=== PATIENT | male | born 1955 | race Caucasian/White ===

== ENCOUNTER 2019-04-04 19:11 | Emergency (ER) | payer MEDICARE ==
[~2019-04-04] VITALS: Ht 172.7 cm; Wt 74.8 kg
[~2019-04-04 19:11] MED LIST: ASPI325 PO; LISI20 PO; LOVA40 PO; Lovastatin20 MG PO; METR500 PO; VARE1 PO
[2019-04-04] MEDS ORDERED: Lovastatin20 MG PO (19:31)
[2019-04-04] MEDS ORDERED: CEPH500 PO (22:14)
== END 2019-04-04 22:24 | disposition home or self-care (01) ==
LOC: ER 19:11
DX: S61.216A Laceration without foreign body of right little finger without damage to nail, initial encounter (principal); I10 Essential (primary) hypertension; F17.210 Nicotine dependence, cigarettes, uncomplicated; Z23 Encounter for immunization; Z79.899 Other long term (current) drug therapy; Z79.82 Long term (current) use of aspirin; W26.8XXA Contact with other sharp object(s), not elsewhere classified, initial encounter
CPT/HCPCS: 12001; 73140; 90471; 90714; 99283-25; A9270-GY

== ENCOUNTER → 2020-06-10 | Outpatient (CLI) | payer MEDICARE ==
[~2020-06-10] MED LIST changes: +CEPH500 PO; +Ferrous Sulfat324 MG; +TAMS.4ER
[2020-06-10 15:22] LABS: BASOPHILS ABSOLUTE AUTO 0.04 K/mm3 (0.00-0.23); BASOPHILS PERCENT AUTO 1 % (0-2); EOSINOPHILS ABSOLUTE AUTO 0.16 K/mm3 (0.00-0.68); EOSINOPHILS PERCENT AUTO 4 % (0-6); Hematocrit 25.2 % (37.0-53.0); Hemoglobin 6.4 g/dL (13.5-17.5); IMMATURE GRAN ABSOLUTE AUTO 0.01 K/mm3 (0.00-0.10); IMMATURE GRAN PERCENT AUTO 0 % (0-1); LYMPHOCYTES ABSOLUTE AUTO 1.07 K/mm3 (0.84-5.20); LYMPHOCYTES PERCENT AUTO 27 % (21-46); MONOCYTES ABSOLUTE AUTO 0.48 K/mm3 (0.16-1.47); MONOCYTES PERCENT AUTO 12 % (4-13); Mean Corpuscular HGB 15.9 pg (26.0-34.0); Mean Corpuscular HGB Conc 25.4 g/dL (31.5-36.5); Mean Corpuscular Volume 63 fL (80-100); Mean Platelet Volume 10.2 fL (9.1-12.4); NEUTROPHILS ABSOLUTE AUTO 2.19 K/mm3 (1.96-9.15); NEUTROPHILS PERCENT AUTO 55 % (41-73); Platelet Count 390 K/mm3 (150-400); RDW Coefficient Variation 22.5 % (11.7-14.2); RDW Standard Deviation 48.8 fL (35.1-46.3); Red Blood Cell Count 4.03 M/mm3 (4.30-5.90); White Blood Cell Count 3.95 K/mm3 (4.00-11.30)
[2020-06-10 15:44] LABS: Alanine Aminotransfer (ALT/SGP 16 U/L (12-78); Albumin, Blood 3.7 g/dL (3.4-5.0); Albumin/Globulin Ratio 1.1 (0.8-1.8); Alk Phos 64 U/L (50-136); Anion Gap 7 mmol/L (6-16); Aspartate Aminotrans (AST/SGOT 11 U/L (12-37); Bilirubin, Total 0.3 mg/dL (0.1-1.0); Blood Urea Nitrogen 19 mg/dL (8-24); Bun/Creatinine Ratio 18.8 (12.0-20.0); CO2, Blood 24 mmol/L (21-32); Calcium, Blood 8.7 mg/dL (8.5-10.1); Chloride, Blood 107 mmol/L (98-108); Cholesterol 167 mg/dL (50-200); Creatinine, Blood 1.01 mg/dL (0.60-1.20); Globulin, Blood 3.4 g/dL (2.2-4.0); Glomerular Filtration Rate >60 (60-); Glucose, Blood 94 mg/dL (70-99); HDL Cholesterol 83 mg/dL (>39); LDL/HDL RATIO 0.9; Low Density Lipoprotein Chol 72 mg/dL (0-110); Potassium, Blood 4.5 mmol/L (3.5-5.5); Sodium, Blood 138 mmol/L (136-145); Total Protein, Blood 7.1 g/dL (6.4-8.2); Triglycerides 61 mg/dL (30-160); Very Low Density Lipoprot Chol 12 mg/dL (6-32)
== END | disposition home or self-care (01) ==
LOC: LAB SHORT 13:26 → PLD 13:26
PROVIDERS: Family Medicine
DX: Z12.5 Encounter for screening for malignant neoplasm of prostate (principal); E78.2 Mixed hyperlipidemia; I11.0 Hypertensive heart disease with heart failure; I50.9 Heart failure, unspecified
CPT/HCPCS: 80053; 80061; 83880; 85025; G0103

== ENCOUNTER 2020-06-25 09:46 | Day surgery (SDC) | payer MEDICARE ==
[~2020-06-25] VITALS: Ht 172.7 cm; Wt 76.1 kg
[~2020-06-25 09:46] MED LIST changes: -Ferrous Sulfat324 MG; -TAMS.4ER
[2020-06-25] MEDS ORDERED: TAMS.4ER (10:31)
[2020-06-25] MEDS ORDERED: Ferrous Sulfat324 MG (10:31)
== END 2020-06-25 13:25 | disposition home or self-care (01) ==
LOC: ORSCSDS 09:46
PROVIDERS: Internal Medicine Gastroenterology
PROC: 0DB78ZX Excision of Stomach, Pylorus, Via Natural or Artificial Opening Endoscopic, Diagnostic (ICD-10-PCS; principal; 2020-06-25 11:15)
PROC: 0D5H8ZZ Destruction of Cecum, Via Natural or Artificial Opening Endoscopic (ICD-10-PCS; principal; 2020-06-25 11:15)
PROC: 0DB98ZX Excision of Duodenum, Via Natural or Artificial Opening Endoscopic, Diagnostic (ICD-10-PCS; principal; 2020-06-25 11:15)
DX: D50.9 Iron deficiency anemia, unspecified (principal); Z80.0 Family history of malignant neoplasm of digestive organs; K55.20 Angiodysplasia of colon without hemorrhage; K57.30 Diverticulosis of large intestine without perforation or abscess without bleeding; K64.8 Other hemorrhoids; Z86.010 Personal history of colon polyps; F17.210 Nicotine dependence, cigarettes, uncomplicated; I10 Essential (primary) hypertension; Z79.899 Other long term (current) drug therapy
CPT/HCPCS: 88305; 88342; J2250; J2704; J7120

== ENCOUNTER → 2022-04-20 | Outpatient (CLI) | payer MEDICARE ==
[~2022-04-20] MED LIST changes: +Ferrous Sulfat324 MG; +TAMS.4ER
[2022-04-20 13:15] LABS: BASOPHILS ABSOLUTE AUTO 0.03 K/mm3 (0.00-0.23); BASOPHILS PERCENT AUTO 1 % (0-2); EOSINOPHILS ABSOLUTE AUTO 0.13 K/mm3 (0.00-0.68); EOSINOPHILS PERCENT AUTO 2 % (0-6); Hematocrit 41.2 % (37.0-53.0); Hemoglobin 14.6 g/dL (13.5-17.5); IMMATURE GRAN ABSOLUTE AUTO 0.02 K/mm3 (0.00-0.10); IMMATURE GRAN PERCENT AUTO 0 % (0-1); LYMPHOCYTES ABSOLUTE AUTO 1.35 K/mm3 (0.84-5.20); LYMPHOCYTES PERCENT AUTO 22 % (21-46); MONOCYTES ABSOLUTE AUTO 0.67 K/mm3 (0.16-1.47); MONOCYTES PERCENT AUTO 11 % (4-13); Mean Corpuscular HGB 31.8 pg (26.0-34.0); Mean Corpuscular HGB Conc 35.4 g/dL (31.5-36.5); Mean Corpuscular Volume 90 fL (80-100); Mean Platelet Volume 10.9 fL (9.1-12.4); NEUTROPHILS ABSOLUTE AUTO 3.88 K/mm3 (1.96-9.15); NEUTROPHILS PERCENT AUTO 64 % (41-73); Platelet Count 281 K/mm3 (150-400); RDW Coefficient Variation 12.6 % (11.7-14.2); RDW Standard Deviation 41.4 fL (35.1-46.3); Red Blood Cell Count 4.59 M/mm3 (4.30-5.90); White Blood Cell Count 6.08 K/mm3 (4.00-11.30)
[2022-04-20 13:33] LABS: Albumin, Blood 3.8 g/dL (3.4-5.0); Albumin/Globulin Ratio 1.2 (0.8-1.8); Bilirubin, Total 0.5 mg/dL (0.1-1.0); Bun/Creatinine Ratio 15.2 (12.0-20.0); Calcium, Blood 8.8 mg/dL (8.5-10.1); Creatinine, Blood 0.99 mg/dL (0.60-1.20); Globulin, Blood 3.3 g/dL (2.2-4.0); Potassium, Blood 4.3 mmol/L (3.5-5.5); Total Protein, Blood 7.1 g/dL (6.4-8.2)
== END | disposition home or self-care (01) ==
LOC: LAB SHORT 13:07
PROVIDERS: Physician Assistant Medical
DX: R07.9 Chest pain, unspecified (principal)
CPT/HCPCS: 80053; 84484; 85025; 85379

== ENCOUNTER 2022-05-18 13:43 | Inpatient (IN) | payer MEDICARE ==
[~2022-05-18] VITALS: Ht 170.2 cm; Wt 84.3 kg
[2022-05-18 14:39] LABS: BASOPHILS ABSOLUTE AUTO 0.02 K/mm3 (0.00-0.23); BASOPHILS PERCENT AUTO 0 % (0-2); EOSINOPHILS PERCENT AUTO 3 % (0-6); Hematocrit 22.7 % (37.0-53.0); Hemoglobin 7.6 g/dL (13.5-17.5); IMMATURE GRAN ABSOLUTE AUTO 0.03 K/mm3 (0.00-0.10); IMMATURE GRAN PERCENT AUTO 1 % (0-1); LYMPHOCYTES ABSOLUTE AUTO 1.15 K/mm3 (0.84-5.20); LYMPHOCYTES PERCENT AUTO 19 % (21-46); MONOCYTES ABSOLUTE AUTO 0.49 K/mm3 (0.16-1.47); MONOCYTES PERCENT AUTO 8 % (4-13); Mean Corpuscular HGB 31.8 pg (26.0-34.0); Mean Corpuscular HGB Conc 33.5 g/dL (31.5-36.5); Mean Corpuscular Volume 95 fL (80-100); Mean Platelet Volume 10.5 fL (9.1-12.4); NEUTROPHILS ABSOLUTE AUTO 4.18 K/mm3 (1.96-9.15); NEUTROPHILS PERCENT AUTO 69 % (41-73); Platelet Count 395 K/mm3 (150-400); RDW Coefficient Variation 13.6 % (11.7-14.2); RDW Standard Deviation 46.5 fL (35.1-46.3); Red Blood Cell Count 2.39 M/mm3 (4.30-5.90); White Blood Cell Count 6.07 K/mm3 (4.00-11.30)
[2022-05-18 14:50] LABS: Albumin, Blood 2.9 g/dL (3.4-5.0); Bilirubin, Total 0.2 mg/dL (0.1-1.0); Bun/Creatinine Ratio 14.9 (12.0-20.0); Calcium, Blood 7.8 mg/dL (8.5-10.1); Creatinine, Blood 1.21 mg/dL (0.60-1.20); Globulin, Blood 2.9 g/dL (2.2-4.0); Potassium, Blood 4.3 mmol/L (3.5-5.5); Total Protein, Blood 5.8 g/dL (6.4-8.2)
[2022-05-18] MEDS ORDERED: ASPI325EC PO (17:31)
[2022-05-18] MEDS ORDERED: PANTOPRAZOLE SO40 M2 PO (17:32)
--- NOTE | 2022-05-18 18:38 | NUR ---
PT ARRIVED ON FLOOR AT 1830. RECEIVED REPORT FROM ER NURSE PRIOR. PT STABLE. VITALS/WEIGHT TAKEN. QUICK ADMIT PERFORMED.
[2022-05-18] MEDS ORDERED: RESTORIL15 M1 PO (19:24)
[2022-05-18 20:08] LABS: Hematocrit 22.9 % (37.0-53.0); Hemoglobin 7.7 g/dL (13.5-17.5)
[2022-05-18 20:30] LABS: Percent Saturation 13.6 % (20.0-50.0)
--- NOTE | 2022-05-19 06:32 | NUR ---
Shift Summary Pt NPO except water since 0000 pending endoscopy today. Provider called me and requested pt become Strict NPO at 1300 today. Placed sign with this information outside his room, will pass to day shift RN. Pt received 30 mg Temazepam before bed which is a new prescription for him, this is the 2nd night he has taken it. Pt heavily asleep t/o the night. Pt states he had black tarry stool earlier today. On telemetry running sinus rhythm in the 70 s. VSS, pleasant and cooperative.
[2022-05-19 09:34] LABS: BASOPHILS ABSOLUTE AUTO 0.02 K/mm3 (0.00-0.23); BASOPHILS PERCENT AUTO 0 % (0-2); EOSINOPHILS PERCENT AUTO 4 % (0-6); Hematocrit 20.9 % (37.0-53.0); IMMATURE GRAN ABSOLUTE AUTO 0.03 K/mm3 (0.00-0.10); IMMATURE GRAN PERCENT AUTO 1 % (0-1); LYMPHOCYTES ABSOLUTE AUTO 1.17 K/mm3 (0.84-5.20); LYMPHOCYTES PERCENT AUTO 25 % (21-46); MONOCYTES ABSOLUTE AUTO 0.45 K/mm3 (0.16-1.47); MONOCYTES PERCENT AUTO 10 % (4-13); Mean Corpuscular HGB 31.4 pg (26.0-34.0); Mean Corpuscular HGB Conc 33.5 g/dL (31.5-36.5); Mean Corpuscular Volume 94 fL (80-100); Mean Platelet Volume 10.5 fL (9.1-12.4); NEUTROPHILS ABSOLUTE AUTO 2.81 K/mm3 (1.96-9.15); NEUTROPHILS PERCENT AUTO 60 % (41-73); Platelet Count 365 K/mm3 (150-400); RDW Coefficient Variation 13.6 % (11.7-14.2); RDW Standard Deviation 46.5 fL (35.1-46.3); Red Blood Cell Count 2.23 M/mm3 (4.30-5.90); White Blood Cell Count 4.68 K/mm3 (4.00-11.30)
--- NOTE | 2022-05-19 16:36 | NUR ---
THE PATIENT WAS BROUGHT TO DAY SURGERY FOR HIS PROCEDURE.
--- NOTE | 2022-05-19 16:41 | NUR ---
05/19/22 1641 Nam [place]. SEE ANETHESIA RECORD
--- NOTE | 2022-05-19 17:18 | NUR ---
PATIENT ARRRIVED BACK FROM EGD, REPORT RECEIVED FROM MARY DHALIWAL. VSS ON ARRIVAL. PATIENT DENIES ANY PAIN OR NEEDS. FALL PRECAUTIONS IN PLACE, BED ALARM SET. CALL LIGHT WITHIN REACH.
--- NOTE | 2022-05-19 18:09 | NUR ---
SHIFT SUMMARY- PT HAD MEDIUM FORMED BROWN BM TODAY-NO BLOOD. PT HAD EGD TODAY. PT STABLE. RECEIVED 1 UNIT OF PRBCS.
[2022-05-20 05:45] LABS: BASOPHILS ABSOLUTE AUTO 0.04 K/mm3 (0.00-0.23); BASOPHILS PERCENT AUTO 1 % (0-2); EOSINOPHILS ABSOLUTE AUTO 0.23 K/mm3 (0.00-0.68); EOSINOPHILS PERCENT AUTO 4 % (0-6); Hematocrit 23.8 % (37.0-53.0); IMMATURE GRAN ABSOLUTE AUTO 0.01 K/mm3 (0.00-0.10); IMMATURE GRAN PERCENT AUTO 0 % (0-1); LYMPHOCYTES ABSOLUTE AUTO 1.27 K/mm3 (0.84-5.20); LYMPHOCYTES PERCENT AUTO 21 % (21-46); MONOCYTES ABSOLUTE AUTO 0.54 K/mm3 (0.16-1.47); MONOCYTES PERCENT AUTO 9 % (4-13); Mean Corpuscular HGB 30.7 pg (26.0-34.0); Mean Corpuscular HGB Conc 33.6 g/dL (31.5-36.5); Mean Corpuscular Volume 91 fL (80-100); Mean Platelet Volume 10.3 fL (9.1-12.4); NEUTROPHILS ABSOLUTE AUTO 3.94 K/mm3 (1.96-9.15); NEUTROPHILS PERCENT AUTO 65 % (41-73); Platelet Count 368 K/mm3 (150-400); RDW Coefficient Variation 14.3 % (11.7-14.2); RDW Standard Deviation 47.2 fL (35.1-46.3); Red Blood Cell Count 2.61 M/mm3 (4.30-5.90); White Blood Cell Count 6.03 K/mm3 (4.00-11.30)
--- NOTE | 2022-05-20 06:19 | NUR ---
EMERGENCY MEDICINE SPECIALIST SUMMARY PT A/XO4. NO ACUTE EVENTS. PLEASANT AND COOPERATIVE. PT HAD EGD DURING THE DAY. CONT W/POST OP VITALS T/O THE NIGHT. VSS. PT REQ HALF DOSE OF TEMAZEPAM-- ADMIN 15MG. PT ABLE TO MAKE NEEDS KNOWN. INDEPENDENT IN THE ROOM. CALL LIGHT ACCESSIBLE. WILL CONT TO MONITOR.
--- NOTE | 2022-05-20 12:56 | NUR ---
DC NOTE-PT LEFT DOWN IN WC WITH MAYRA MORALES IN STABLE CONDITION. PT LEFT WITH ALL BELONGINGS. ALL PAPERWORK SIGNED AND QUESTIONS ANSERED. MEDS FAXED TO [facility].
[2022-05-20 17:12] LABS: Potassium, Blood 3.7 mmol/L (3.5-5.5)
[2022-05-20 17:13] LABS: Bun/Creatinine Ratio 16.5 (12.0-20.0); Calcium, Blood 8.2 mg/dL (8.5-10.1); Creatinine, Blood 0.97 mg/dL (0.60-1.20)
== END 2022-05-20 12:44 | disposition home or self-care (01) | DRG 811 ==
LOC: ER 13:43 → MEDS 17:41
PROVIDERS: Internal Medicine; Internal Medicine Gastroenterology; Physician Assistant; ADMIT Internal Medicine
PROC: 30233N1 Transfusion of Nonautologous Red Blood Cells into Peripheral Vein, Percutaneous Approach (ICD-10-PCS; 2022-05-18)
PROC: 0W3P8ZZ Control Bleeding in Gastrointestinal Tract, Via Natural or Artificial Opening Endoscopic (ICD-10-PCS; principal; 2022-05-19 15:00)
DX: D62 Acute posthemorrhagic anemia (principal); K25.4 Chronic or unspecified gastric ulcer with hemorrhage; K26.4 Chronic or unspecified duodenal ulcer with hemorrhage; K31.811 Angiodysplasia of stomach and duodenum with bleeding; I10 Essential (primary) hypertension; E78.5 Hyperlipidemia, unspecified; F12.10 Cannabis abuse, uncomplicated; K64.8 Other hemorrhoids; K22.2 Esophageal obstruction; Z79.899 Other long term (current) drug therapy; Z79.811 Long term (current) use of aromatase inhibitors; Z98.890 Other specified postprocedural states; Z87.19 Personal history of other diseases of the digestive system; Z90.49 Acquired absence of other specified parts of digestive tract; Z87.891 Personal history of nicotine dependence; Z86.79 Personal history of other diseases of the circulatory system; Z98.52 Vasectomy status; Z79.82 Long term (current) use of aspirin; Z86.010 Personal history of colon polyps
CPT/HCPCS: 36415; 36430; 71046; 80048; 80053; 82272; 82728; 83540; 83550; 84484; 85014; 85018; 85025; 86850; 86900; 86901; 86923; 93005; 93010; 96374; 99285-25; A9270; C9113; J2704; J7120; P9016

== ENCOUNTER 2022-06-01 12:32 | Inpatient (IN) | payer MEDICARE ==
[~2022-06-01] VITALS: Ht 170.2 cm; Wt 83.0 kg
[~2022-06-01 12:32] MED LIST changes: +ASPI325EC PO; +PANTOPRAZOLE SO40 M2 PO; +RESTORIL15 M1 PO
[2022-06-01] MEDS ORDERED: LOVASTATIN40 MG PO (12:58)
[2022-06-01 13:20] LABS: BASOPHILS ABSOLUTE AUTO 0.03 K/mm3 (0.00-0.23); BASOPHILS PERCENT AUTO 1 % (0-2); EOSINOPHILS ABSOLUTE AUTO 0.15 K/mm3 (0.00-0.68); EOSINOPHILS PERCENT AUTO 3 % (0-6); Hematocrit 21.7 % (37.0-53.0); Hemoglobin 6.8 g/dL (13.5-17.5); IMMATURE GRAN ABSOLUTE AUTO 0.02 K/mm3 (0.00-0.10); IMMATURE GRAN PERCENT AUTO 0 % (0-1); LYMPHOCYTES ABSOLUTE AUTO 1.14 K/mm3 (0.84-5.20); LYMPHOCYTES PERCENT AUTO 23 % (21-46); MONOCYTES ABSOLUTE AUTO 0.53 K/mm3 (0.16-1.47); MONOCYTES PERCENT AUTO 11 % (4-13); Mean Corpuscular HGB 27.9 pg (26.0-34.0); Mean Corpuscular HGB Conc 31.3 g/dL (31.5-36.5); Mean Corpuscular Volume 89 fL (80-100); NEUTROPHILS ABSOLUTE AUTO 3.16 K/mm3 (1.96-9.15); NEUTROPHILS PERCENT AUTO 63 % (41-73); Platelet Count 339 K/mm3 (150-400); RDW Coefficient Variation 14.4 % (11.7-14.2); RDW Standard Deviation 46.5 fL (35.1-46.3); Red Blood Cell Count 2.44 M/mm3 (4.30-5.90); White Blood Cell Count 5.03 K/mm3 (4.00-11.30)
[2022-06-01 13:35] LABS: Albumin, Blood 3.3 g/dL (3.4-5.0); Albumin/Globulin Ratio 1.1 (0.8-1.8); Bilirubin, Total 0.3 mg/dL (0.1-1.0); Calcium, Blood 8.6 mg/dL (8.5-10.1); Globulin, Blood 2.9 g/dL (2.2-4.0); Potassium, Blood 4.1 mmol/L (3.5-5.5); Total Protein, Blood 6.2 g/dL (6.4-8.2)
[2022-06-01] MEDS ORDERED: MIRALAX1714 PO (16:12)
--- NOTE | 2022-06-01 18:28 | NUR ---
SHIFT SUMMARY PT ARRIVED TO PCU FROM ED VIA ED STRETCHER AT APPROX 1600. PT AMBULATED FROM ED STRETCHER TO PCU BED INDEPENDENTLY. PT A&OX4. SP02>90% ON RA. TELEMETRY SHOWS NSR, HR 70'S. VSS. PT ARRIVED FROM ED W/ 1 UNIT PRBC INFUSING. INFUSION COMPLETED ON PAPER CHARTING, SEE CHART. PROTONIX GTT INFUSING PER EMAR. PT REPORTS BLACK TARRY STOOL YESTERDAY, POSITIVE FOR BLOOD PER HIS MD. UP TO BATHROOM W/ HELP TO MANAGE IV LINES TO VOID. ORIENTED TO ROOM, CALL LIGHT. CALL LIGHT IN REACH.
[2022-06-01 20:08] LABS: Hematocrit 24.6 % (37.0-53.0); Hemoglobin 8.1 g/dL (13.5-17.5)
[2022-06-02 04:35] LABS: Hematocrit 21.5 % (37.0-53.0); Hemoglobin 7.1 g/dL (13.5-17.5); Mean Corpuscular HGB 28.7 pg (26.0-34.0); Mean Corpuscular Volume 87 fL (80-100); Mean Platelet Volume 10.1 fL (9.1-12.4); Platelet Count 279 K/mm3 (150-400); RDW Coefficient Variation 14.5 % (11.7-14.2); RDW Standard Deviation 46.5 fL (35.1-46.3); Red Blood Cell Count 2.47 M/mm3 (4.30-5.90); White Blood Cell Count 4.84 K/mm3 (4.00-11.30)
--- NOTE | 2022-06-02 05:13 | NUR ---
SHIFT SUMMARY ASSUMED CARE OF PT AT 1900. PT IS A/OX4. HEART SOUNDS REGULAR. LUNG SOUNDS CLEAR. PT DID NOT HAVE A BM THIS SHIFT. PT WAS SBA FOR LINES TO BATHROOM. PT HAD NO NEW COMPLAINTS.
[2022-06-02 09:47] LABS: Percent Saturation 4.6 % (20.0-50.0)
[2022-06-02 15:37] LABS: Hematocrit 25.7 % (37.0-53.0); Hemoglobin 8.4 g/dL (13.5-17.5)
--- NOTE | 2022-06-02 18:47 | NUR ---
SHIFT SUMMARY NO ACUTE EVENTS. PT RESTED IN BED MOST OF THE DAY. SEE DOCUMENTED VS AND ASSESSMENT. PT HAD NO COMPLAINTS. PER DR RICE, PLAN IS TO CONTINUE TO MONITOR PT'S H/H, REPLACE HIS IRON, AND SEE HOW HE DOES IN THE NEXT 48HRS. PT IS IN AGREEMENT WITH THIS PLAN. PROTONIX GTT CONTINUES. PT IS IN AGREEMENT WITH THIS PLAN. PT IS ABLE TO USE CALL LIGHT FOR NEEDS, CALL LIGHT IN REACH, WILL CONTINUE TO MONITOR AND GIVE REPORT TO NOC SHIFT RN.
[2022-06-03 05:47] LABS: BASOPHILS ABSOLUTE AUTO 0.04 K/mm3 (0.00-0.23); BASOPHILS PERCENT AUTO 1 % (0-2); EOSINOPHILS ABSOLUTE AUTO 0.24 K/mm3 (0.00-0.68); EOSINOPHILS PERCENT AUTO 5 % (0-6); Hematocrit 24.5 % (37.0-53.0); Hemoglobin 7.7 g/dL (13.5-17.5); IMMATURE GRAN ABSOLUTE AUTO 0.03 K/mm3 (0.00-0.10); IMMATURE GRAN PERCENT AUTO 1 % (0-1); LYMPHOCYTES ABSOLUTE AUTO 0.98 K/mm3 (0.84-5.20); LYMPHOCYTES PERCENT AUTO 18 % (21-46); MONOCYTES ABSOLUTE AUTO 0.68 K/mm3 (0.16-1.47); MONOCYTES PERCENT AUTO 13 % (4-13); Mean Corpuscular HGB 27.7 pg (26.0-34.0); Mean Corpuscular HGB Conc 31.4 g/dL (31.5-36.5); Mean Corpuscular Volume 88 fL (80-100); Mean Platelet Volume 10.1 fL (9.1-12.4); NEUTROPHILS ABSOLUTE AUTO 3.37 K/mm3 (1.96-9.15); NEUTROPHILS PERCENT AUTO 63 % (41-73); Platelet Count 309 K/mm3 (150-400); RDW Coefficient Variation 14.6 % (11.7-14.2); RDW Standard Deviation 47.4 fL (35.1-46.3); Red Blood Cell Count 2.78 M/mm3 (4.30-5.90); White Blood Cell Count 5.34 K/mm3 (4.00-11.30)
--- NOTE | 2022-06-03 14:06 | NUR ---
DISCHARGE NOTE PT DISCHARGED HOME WITH ALL BELONGINGS. DISCHARGE TEACHING REVIEWED WITH PT INCLUDING FOLLOW UP APPOINTMENTS, MEDICATION LIST AND CHANGES AND EDUCATION MATERIAL. PT VERBALIZES UNDERSTANDING OF TEACHING AND HAS NO QUESTIONS OR CONCERNS. IV X 2 REMOVED, WNL. PT AMBULATORY IN ROOM, STEADY GAIT, DISCHARGED WITH HIS , ALL BELONGINGS SENT HOME WITH PT, NO FURTHER DISCHARGE NEEDS IDENTIFIED.
== END 2022-06-03 13:05 | disposition home or self-care (01) | DRG 811 ==
LOC: ER 12:32 → PCU 12:33
PROVIDERS: Emergency Medicine; Nurse Practitioner Acute Care; ADMIT Internal Medicine
PROC: 30233N1 Transfusion of Nonautologous Red Blood Cells into Peripheral Vein, Percutaneous Approach (ICD-10-PCS; principal; 2022-06-01)
DX: D62 Acute posthemorrhagic anemia (principal); K25.4 Chronic or unspecified gastric ulcer with hemorrhage; K26.4 Chronic or unspecified duodenal ulcer with hemorrhage; K31.811 Angiodysplasia of stomach and duodenum with bleeding; E78.5 Hyperlipidemia, unspecified; D50.9 Iron deficiency anemia, unspecified; R19.5 Other fecal abnormalities; I10 Essential (primary) hypertension; F12.10 Cannabis abuse, uncomplicated; N40.0 Benign prostatic hyperplasia without lower urinary tract symptoms; K22.2 Esophageal obstruction; Z98.890 Other specified postprocedural states; Z87.19 Personal history of other diseases of the digestive system; Z90.49 Acquired absence of other specified parts of digestive tract; Z79.899 Other long term (current) drug therapy; Z79.811 Long term (current) use of aromatase inhibitors; Z87.891 Personal history of nicotine dependence
CPT/HCPCS: 36415; 36430; 80053; 82607; 82728; 82746; 83540; 83550; 85014; 85018; 85025; 85027; 86850; 86900; 86901; 86923; 96361; 96374; 96375; 96376; 99284-25; A9270; C9113; G0378; J2916; J7030; P9016

== ENCOUNTER 2022-07-15 11:28 | Emergency (ER) | payer MEDICARE ==
[~2022-07-15] VITALS: Ht 170.2 cm; Wt 83.0 kg
[~2022-07-15 11:28] MED LIST changes: +LOVASTATIN40 MG PO; +MIRALAX1714 PO
[2022-07-15] MEDS ORDERED: LISI20 PO (12:26)
[2022-07-15] MEDS ORDERED: FERREX 150150 MG PO (12:27)
[2022-07-15] MEDS ORDERED: Vitamin D1000 UNI1 PO (12:28)
[2022-07-15 12:33] LABS: BASOPHILS ABSOLUTE AUTO 0.05 K/mm3 (0.00-0.23); BASOPHILS PERCENT AUTO 1 % (0-2); EOSINOPHILS ABSOLUTE AUTO 0.11 K/mm3 (0.00-0.68); EOSINOPHILS PERCENT AUTO 2 % (0-6); Hematocrit 27.9 % (37.0-53.0); Hemoglobin 8.4 g/dL (13.5-17.5); IMMATURE GRAN ABSOLUTE AUTO 0.02 K/mm3 (0.00-0.10); IMMATURE GRAN PERCENT AUTO 0 % (0-1); LYMPHOCYTES ABSOLUTE AUTO 1.32 K/mm3 (0.84-5.20); LYMPHOCYTES PERCENT AUTO 23 % (21-46); MONOCYTES ABSOLUTE AUTO 0.46 K/mm3 (0.16-1.47); MONOCYTES PERCENT AUTO 8 % (4-13); Mean Corpuscular HGB 25.7 pg (26.0-34.0); Mean Corpuscular HGB Conc 30.1 g/dL (31.5-36.5); Mean Corpuscular Volume 85 fL (80-100); Mean Platelet Volume 10.4 fL (9.1-12.4); NEUTROPHILS ABSOLUTE AUTO 3.73 K/mm3 (1.96-9.15); NEUTROPHILS PERCENT AUTO 66 % (41-73); Platelet Count 473 K/mm3 (150-400); RDW Coefficient Variation 22.7 % (11.7-14.2); RDW Standard Deviation 69.4 fL (35.1-46.3); Red Blood Cell Count 3.27 M/mm3 (4.30-5.90); White Blood Cell Count 5.69 K/mm3 (4.00-11.30)
[2022-07-15 12:43] LABS: Bun/Creatinine Ratio 15.6 (12.0-20.0); Calcium, Blood 8.7 mg/dL (8.5-10.1); Creatinine, Blood 0.96 mg/dL (0.60-1.20); Magnesium, Blood 2.3 mg/dL (1.6-2.4); Potassium, Blood 4.5 mmol/L (3.5-5.5)
[2022-07-15 13:03] LABS: International Normalized Ratio 0.99; Prothrombin Time Results 10.4 Sec (9.7-11.5)
[2022-07-15 14:22] VITALS: BP 132/74
== END 2022-07-15 14:53 | disposition home or self-care (01) ==
LOC: ER 11:28
PROVIDERS: Student in an Organized Health Care Education/Training Program
DX: I71.21 Aneurysm of the ascending aorta, without rupture (principal); D64.9 Anemia, unspecified; Z79.899 Other long term (current) drug therapy; I10 Essential (primary) hypertension; E78.00 Pure hypercholesterolemia, unspecified; Z87.891 Personal history of nicotine dependence; I50.42 Chronic combined systolic (congestive) and diastolic (congestive) heart failure; I35.0 Nonrheumatic aortic (valve) stenosis
CPT/HCPCS: 36415; 71275; 80048; 83735; 83880; 85025; 85610; 85730; 93005; 93010; 93306; 99284-25; Q9967

== ENCOUNTER 2022-09-06 07:10 | Day surgery (SDC) | payer MEDICARE ==
[2022-09-06] VITALS (16 sets, daily range): BP systolic 102–131; BP diastolic 67–84
[~2022-09-06] VITALS: Ht 170.2 cm; Wt 82.7 kg
[~2022-09-06 07:10] MED LIST changes: +ASCO500 PO; +FERREX 150150 MG PO; +FERSU300 PO; +MELATONIN; -TAMS.4ER; +TAMS.4ER PO; +Vitamin D1000 UNI1 PO
[2022-09-06] MEDS ORDERED: MELA3 PO (07:35)
--- NOTE | 2022-09-06 09:15 | NUR ---
ASSUMED CARE OF PT POST PROCEDURE. PT AWAKE AND CONVERSING APPROPRIATELY; DENIES CHEST PAIN POST PROCEDURE. MONITOR SR 60'S, B/P 110/75, SPO2 99% RA, AFEBRILE. R RADIAL SITE NO SWELLING/HEMATOMA, TR BAND IN PLACE; RUE POSITIVE PLEUTH. R GROIN NO SWELLING/HEMATMA, TEGADERM DRSG INTACT; RLE PULSES 1+ POST PROCEDURE. PT'S FAMILY AT BEDSIDE, ATTENTIVE.
--- NOTE | 2022-09-06 09:55 | NUR ---
DR TOLEDO DISCUSSED RESULTS OF PROCEDURE WITH PT AND FAMILY.
--- NOTE | 2022-09-06 11:35 | NUR ---
PT HOB ELEVATED TO 30 DEGREES, R GROIN SITE UNCHANGED. TR BAND FULLY DEFLATED, R WRIST S/S OF SWELLING/HEMATOMA.
--- NOTE | 2022-09-06 14:10 | NUR ---
PT AMB TO BATHROOM, GAIT STEADY; SITES UNCHANGED WITH ACTIVITY.
--- NOTE | 2022-09-06 14:55 | NUR ---
PT DRESSED SELF WITHOUT ISSUE, SITES UNCHANGED. TR BAND REMOVED, CLOTH DOT AND WRIST IMMOBILIZER PLACED; IV REMOVED-CANNULA INTACT.
--- NOTE | 2022-09-06 15:03 | NUR ---
PT RECEIVED DISCHARGE INSTRUCTIONS, SITE MANAGEMENT, MED LIST AND AFTER CARE INSTRUCTIONS; VERBALIZED GOOD UNDERSTANDING. PT LEFT FACILITY VIA W/C, CONDITION STABLE.
== END 2022-09-06 15:03 | disposition home or self-care (01) ==
LOC: MHTC 07:10
DX: I25.10 Atherosclerotic heart disease of native coronary artery without angina pectoris (principal); I10 Essential (primary) hypertension; R01.1 Cardiac murmur, unspecified; I35.0 Nonrheumatic aortic (valve) stenosis; Z79.82 Long term (current) use of aspirin
CPT/HCPCS: 76937; 93454; 99152; 99153; A9270; C1760; C1769; C1887; C1894; J1644; J2250; J3010; J7030; J7050; Q9967

== ENCOUNTER → 2022-11-11 | Outpatient (CLI) | payer MEDICARE ==
[~2022-11-11] MED LIST changes: +MELA3 PO
[2022-11-11 19:48] LABS: BASOPHILS ABSOLUTE AUTO 0.05 K/mm3 (0.00-0.23); BASOPHILS PERCENT AUTO 1 % (0-2); EOSINOPHILS ABSOLUTE AUTO 0.07 K/mm3 (0.00-0.68); EOSINOPHILS PERCENT AUTO 1 % (0-6); Hematocrit 34.2 % (37.0-53.0); Hemoglobin 10.8 g/dL (13.5-17.5); IMMATURE GRAN ABSOLUTE AUTO 0.02 K/mm3 (0.00-0.10); IMMATURE GRAN PERCENT AUTO 0 % (0-1); LYMPHOCYTES ABSOLUTE AUTO 0.85 K/mm3 (0.84-5.20); LYMPHOCYTES PERCENT AUTO 13 % (21-46); MONOCYTES PERCENT AUTO 9 % (4-13); Mean Corpuscular HGB 28.7 pg (26.0-34.0); Mean Corpuscular HGB Conc 31.6 g/dL (31.5-36.5); Mean Corpuscular Volume 91 fL (80-100); Mean Platelet Volume 11.2 fL (9.1-12.4); NEUTROPHILS ABSOLUTE AUTO 4.92 K/mm3 (1.96-9.15); NEUTROPHILS PERCENT AUTO 76 % (41-73); Platelet Count 526 K/mm3 (150-400); RDW Standard Deviation 46.4 fL (35.1-46.3); Red Blood Cell Count 3.76 M/mm3 (4.30-5.90); White Blood Cell Count 6.51 K/mm3 (4.00-11.30)
[2022-11-11 20:03] LABS: Albumin, Blood 3.3 g/dL (3.4-5.0); Albumin/Globulin Ratio 0.8 (0.8-1.8); Bilirubin, Total 0.2 mg/dL (0.1-1.0); Bun/Creatinine Ratio 23.7 (12.0-20.0); Calcium, Blood 9.2 mg/dL (8.5-10.1); Creatinine, Blood 0.89 mg/dL (0.60-1.20); Potassium, Blood 4.4 mmol/L (3.5-5.5); Total Protein, Blood 7.3 g/dL (6.4-8.2)
== END ==
LOC: LAB 12:30 → LAB SHORT 12:30
PROVIDERS: Family Medicine
DX: I10 Essential (primary) hypertension (principal); E78.2 Mixed hyperlipidemia; K92.2 Gastrointestinal hemorrhage, unspecified
CPT/HCPCS: 80053; 85025

== ENCOUNTER 2022-11-27 14:57 | Inpatient (IN) | payer MEDICARE ==
[~2022-11-27] VITALS: Ht 172.7 cm; Wt 80.5 kg
[2022-11-27 15:42] LABS: BASOPHILS ABSOLUTE AUTO 0.03 K/mm3 (0.00-0.23); BASOPHILS PERCENT AUTO 0 % (0-2); EOSINOPHILS ABSOLUTE AUTO 0.09 K/mm3 (0.00-0.68); EOSINOPHILS PERCENT AUTO 1 % (0-6); Hematocrit 35.8 % (37.0-53.0); Hemoglobin 11.7 g/dL (13.5-17.5); IMMATURE GRAN ABSOLUTE AUTO 0.02 K/mm3 (0.00-0.10); IMMATURE GRAN PERCENT AUTO 0 % (0-1); LYMPHOCYTES ABSOLUTE AUTO 1.18 K/mm3 (0.84-5.20); LYMPHOCYTES PERCENT AUTO 16 % (21-46); MONOCYTES PERCENT AUTO 8 % (4-13); Mean Corpuscular HGB 29.5 pg (26.0-34.0); Mean Corpuscular HGB Conc 32.7 g/dL (31.5-36.5); Mean Corpuscular Volume 90 fL (80-100); Mean Platelet Volume 11.3 fL (9.1-12.4); NEUTROPHILS ABSOLUTE AUTO 5.64 K/mm3 (1.96-9.15); NEUTROPHILS PERCENT AUTO 75 % (41-73); Platelet Count 288 K/mm3 (150-400); RDW Coefficient Variation 14.2 % (11.7-14.2); RDW Standard Deviation 47.4 fL (35.1-46.3); Red Blood Cell Count 3.97 M/mm3 (4.30-5.90); White Blood Cell Count 7.56 K/mm3 (4.00-11.30)
[2022-11-27 16:10] LABS: Albumin, Blood 3.5 g/dL (3.4-5.0); Bilirubin, Total 0.2 mg/dL (0.1-1.0); Bun/Creatinine Ratio 24.5 (12.0-20.0); Calcium, Blood 9.2 mg/dL (8.5-10.1); Creatinine, Blood 0.98 mg/dL (0.60-1.20); Globulin, Blood 3.5 g/dL (2.2-4.0); Potassium, Blood 4.5 mmol/L (3.5-5.5)
[2022-11-27 16:42] LABS: Magnesium, Blood 2.3 mg/dL (1.6-2.4)
[2022-11-27 16:43] LABS: Thyroid Stimulating Hormone 1.99 uIU/mL (0.360-4.800)
[2022-11-27 18:15] LABS: Anti-Xa UFH, PHA Monitoring <0.10 IU/mL; International Normalized Ratio 1.04; Prothrombin Time Results 10.9 Sec (9.7-11.5)
[2022-11-27 18:23] VITALS: BP 140/85
--- NOTE | 2022-11-27 19:24 | NUR ---
PT ARRIVED TO ROOM PCU17 FROM ED. PT ABLE TO STAND AND TRANSFER FROM GURNEY TO BED WITHOUT ASSISTANCE. A&OX4, ORIENTED TO ROOM/CALL LIGHT, PT VERBALIZES UNDERSTANDING. HR 129 AFLUTTER ON TELE. AMIODARONE AND HEPARIN GTT STARTED PER MD ORDERS. REPORT GIVEN TO CINDA CHAVES RN.
[2022-11-27 19:31] VITALS: BP 137/90
[2022-11-27] MEDS ORDERED: ASPI81CH PO (20:29)
[2022-11-27] MEDS ORDERED: METO25 PO (20:29)
[2022-11-27 20:30] VITALS: BP 110/79
[2022-11-27 21:00] VITALS: BP 117/87
--- NOTE | 2022-11-27 21:17 | NUR ---
UPDATE: RECEIVED REPORT FROM DAYTIME RN @191. ON FIRST ASSESSMENT PT ALERT AND ORIENTED X4, ABLE TO FOLLOW COMMANDS AND MAKE NEEDS KNOWN. BP STABLE, HR REMAINS AFLUTTER 130'S, DENIES CP/PRESSURE. AMIO GTT IN L FOREARM. PT COMPLAINING OF NEW ONSET TREMORS IN LOWER EXTREMITIES. ASSESSING PT, INVOLUNTARY MOVEMENTS NOTED IN LOWER EXTREMITIES AND RIGHT UPPER ARM. PT STATES THIS STARTED APPROX 1 HR AGO. PT WITH NO STATED ALLERGIES TO AMIO. CALL PLACED TO MD WITH UPDATE, ORDERS TO PLACE AMIO ON STANDBY AND NEW ORDERS FOR 5MG PUSH OF LOPRESSOR. HR REMAINS UNCHAGED. MD UPDATED, NEW ORDERS RECEIVED FOR DIG, SEE EMAR. VITAL SIGNS REMAIN STABLE. TREMORS SUBSIDED. PT RESTING COMFORTABLY IN BED.
[2022-11-27 21:30] VITALS: BP 120/69
[2022-11-27 23:00] VITALS: BP 127/81
[2022-11-28] VITALS (7 sets, daily range): BP systolic 120–142; BP diastolic 67–95
[2022-11-28 01:39] LABS: BASOPHILS ABSOLUTE AUTO 0.05 K/mm3 (0.00-0.23); BASOPHILS PERCENT AUTO 1 % (0-2); EOSINOPHILS ABSOLUTE AUTO 0.15 K/mm3 (0.00-0.68); EOSINOPHILS PERCENT AUTO 2 % (0-6); Hematocrit 34.8 % (37.0-53.0); Hemoglobin 11.4 g/dL (13.5-17.5); IMMATURE GRAN ABSOLUTE AUTO 0.05 K/mm3 (0.00-0.10); IMMATURE GRAN PERCENT AUTO 1 % (0-1); LYMPHOCYTES ABSOLUTE AUTO 1.39 K/mm3 (0.84-5.20); LYMPHOCYTES PERCENT AUTO 21 % (21-46); MONOCYTES PERCENT AUTO 8 % (4-13); Mean Corpuscular HGB 29.3 pg (26.0-34.0); Mean Corpuscular HGB Conc 32.8 g/dL (31.5-36.5); Mean Corpuscular Volume 90 fL (80-100); Mean Platelet Volume 11.4 fL (9.1-12.4); NEUTROPHILS ABSOLUTE AUTO 4.42 K/mm3 (1.96-9.15); NEUTROPHILS PERCENT AUTO 67 % (41-73); Platelet Count 290 K/mm3 (150-400); RDW Coefficient Variation 14.2 % (11.7-14.2); RDW Standard Deviation 45.9 fL (35.1-46.3); Red Blood Cell Count 3.89 M/mm3 (4.30-5.90); White Blood Cell Count 6.56 K/mm3 (4.00-11.30)
--- NOTE | 2022-11-28 04:29 | NUR ---
SHIFT SUMMARY: PT REMAINS ALERT AND ORIENTED X4, ABLE TO FOLLOW COMMANDS AND MAKE NEEDS KNOWN. STRENGTH EQUAL BILATERALLY. BP STABLE, AFEBRILE, SATS >98% ON ROOM AIR. RESPIRATIONS EVEN AND UNLABORED. HR REMAINS AFLUTTER 120'S. DENIES CP/PRESSURE/SOB. PT DENIES TREMORS, SEE PREVIOUS NOTE. AMIO D/C. HEPARIN GTT IN L FOREARM. PT ABLE TO USE URINAL AT BEDSIDE, ADEQUATE URINARY OUTPUT. NO BM. PT ABLE TO SLEEP ON AND OFF THROUGHOUT THE NIGHT. BED IN LOW, CALL LIGHT IN REACH, WILL REPORT TO ONCOMING RN.
[2022-11-28] MEDS ORDERED: Colace100 MG PO (08:13)
[2022-11-28] MEDS ORDERED: DOCU100 PO (08:14)
[2022-11-28 09:22] LABS: Albumin, Blood 3.3 g/dL (3.4-5.0); Anion Gap 5 mmol/L (6-16); Blood Urea Nitrogen 18 mg/dL (8-24); Bun/Creatinine Ratio 21.6 (12.0-20.0); CO2, Blood 21 mmol/L (21-32); Calcium, Blood 8.8 mg/dL (8.5-10.1); Chloride, Blood 113 mmol/L (98-108); Creatinine, Blood 0.84 mg/dL (0.60-1.20); Glomerular Filtration Rate 94 (60-); Glucose, Blood 116 mg/dL (70-99); Phosphorus, Blood 3.2 mg/dL (2.5-4.9); Potassium, Blood 4.5 mmol/L (3.5-5.5); Sodium, Blood 139 mmol/L (136-145)
[2022-11-28 11:14] LABS: International Normalized Ratio 1.05
[2022-11-28 11:18] LABS: Bun/Creatinine Ratio 20.4 (12.0-20.0); Calcium, Blood 8.8 mg/dL (8.5-10.1); Creatinine, Blood 0.83 mg/dL (0.60-1.20); Magnesium, Blood 2.2 mg/dL (1.6-2.4); Potassium, Blood 4.5 mmol/L (3.5-5.5)
--- NOTE | 2022-11-28 13:44 | NUR ---
ASSUMED CARE OF PT AT 0700 THIS AM. PT DENIES CHEST PAIN OR PRESSURE, NO EDEMA, SKIN PWD. HR AVERAGING 130s, AFLUTTER ON MONITOR. HEPARIN GTT INFUSING PER MD ORDERS. DR NATARAJAN CONTACTED WITH CONSULTATION. DR NATARAJAN SAW PT LATER IN THE AM, NEW ORDERS OBTAINED. APROX 1248 TELEVISION NEWS VIDEO EDITOR ALARMING "VTACH," APPEARS TO BE FREQUENT PACs AND SOME SINUS BEATS, THOUGH HEART RHYTHM CONVERTING TO SR. PT IS DENIES CHEST PAIN OR PRESSURE, STATES HE CAN FEEL SOME PALPITATIONS. EKG OBTAINED AND DR NATARAJAN NOTIFIED. WILL CONTINUE TO MONITOR, PT'S AT BEDSIDE. HR 80, SR AT THIS TIME.
--- NOTE | 2022-11-28 18:24 | NUR ---
NO ACUTE EVENTS SINCE LAST NOTE. PT'S HR 88 AT THIS TIME, NSR W OCCASIONAL PVCs NOTED. PT CONTINUES TO DENY CHEST PAIN OR PRESSURE. PT HAS NO COMPLAINTS AT THIS TIME. HEPARIN CONTINUES TO INFUSE PER MD ORDER. PT USES CALL LIGHT FOR NEEDS, CALL LIGHT IN REACH. WILL CONTINUE TO MONITOR AND GIVE REPORT TO NOC SHIFT RN.
[2022-11-29 00:10] VITALS: BP 117/66
[2022-11-29 03:28] VITALS: BP 126/72
[2022-11-29 03:58] LABS: Hematocrit 32.2 % (37.0-53.0); Hemoglobin 10.5 g/dL (13.5-17.5); Mean Platelet Volume 10.9 fL (9.1-12.4); Platelet Count 276 K/mm3 (150-400)
--- NOTE | 2022-11-29 04:17 | NUR ---
SHIFT SUMMARY: Pt slept most of the night. Medicated with tyelnol for mild chest pain due to recent open heart surgery. Medicated with home dose of temazepam before bed for insomnia. NSR with occasional short runs of Afib, rate controlled. Heparin running at 15units/kg/hr.
[2022-11-29 07:42] VITALS: BP 133/63
--- NOTE | 2022-11-29 07:53 | NUR ---
Am note Patient alert, oriented x4; calm and cooperative with care. Pt resting in bed, up ind in room. Pt reports ache to midline surgical scare to chest, 1/10 after tylenol. Tele sinus, with pvc's pt reports feeling a "three legged horse in chest" during pvcs. Bp stable, hr 70's. Spo2 >90% on ra, breathing even and unlabored, ls clear. Abd soft nontender with normoactive bt. Edema noted ble trace. Other vss. No other acute changes noted. Will continue to monitor.
[2022-11-29] MEDS ORDERED: DRON400T PO (11:01)
--- NOTE | 2022-11-29 13:34 | NUR ---
Discharge Summary No acute changes t/o shift. Pt reports feeling anxious about discharge, Dr Blake at bedside, reviewed ekg and agreed ok to discharge. Pt and spouse educated about follow up appointments, medications changes and discharge instructions. Called prescriptions to [facility], confirmed [employer] in stock to pickle cutter for tonight. Pt left via wheelchair at approx [phone]
== END 2022-11-29 11:34 | disposition home or self-care (01) | DRG 310 ==
LOC: ER 14:57 → PCU 14:58
PROVIDERS: Emergency Medicine; Family Medicine; Internal Medicine Interventional Cardiology; ADMIT Hospitalist
DX: I48.92 Unspecified atrial flutter (principal); I10 Essential (primary) hypertension; E78.00 Pure hypercholesterolemia, unspecified; K64.9 Unspecified hemorrhoids; E78.5 Hyperlipidemia, unspecified; K57.30 Diverticulosis of large intestine without perforation or abscess without bleeding; S50.811A Abrasion of right forearm, initial encounter; X58.XXXA Exposure to other specified factors, initial encounter; D64.9 Anemia, unspecified; Z98.52 Vasectomy status; Z90.49 Acquired absence of other specified parts of digestive tract; Z86.010 Personal history of colon polyps; Z90.89 Acquired absence of other organs; Z98.890 Other specified postprocedural states; Z79.811 Long term (current) use of aromatase inhibitors; Z79.899 Other long term (current) drug therapy; Z87.891 Personal history of nicotine dependence; Z95.2 Presence of prosthetic heart valve; Z87.19 Personal history of other diseases of the digestive system
CPT/HCPCS: 36415; 71046; 80048; 80053; 80069; 83735; 83880; 84443; 84484; 85014; 85018; 85025; 85049; 85520; 85610; 85730; 93005; 93010; 93306; 94760; 96365; 96366; 96367; 96368; 96375; 96376; 99285-25; A9270; G0378; J0282; J1160; J1644; J7030; J7060

== ENCOUNTER → 2022-12-03 | Outpatient (CLI) | payer MEDICARE ==
[~2022-12-03] MED LIST changes: +ASPI81CH PO; +Colace100 MG PO; +DOCU100 PO; +DRON400T PO; +METO25 PO
[2022-12-03 15:28] LABS: BASOPHILS ABSOLUTE AUTO 0.03 K/mm3 (0.00-0.23); BASOPHILS PERCENT AUTO 0 % (0-2); EOSINOPHILS ABSOLUTE AUTO 0.12 K/mm3 (0.00-0.68); EOSINOPHILS PERCENT AUTO 2 % (0-6); Hematocrit 35.9 % (37.0-53.0); Hemoglobin 11.3 g/dL (13.5-17.5); IMMATURE GRAN ABSOLUTE AUTO 0.04 K/mm3 (0.00-0.10); IMMATURE GRAN PERCENT AUTO 1 % (0-1); LYMPHOCYTES ABSOLUTE AUTO 0.99 K/mm3 (0.84-5.20); LYMPHOCYTES PERCENT AUTO 14 % (21-46); MONOCYTES ABSOLUTE AUTO 0.63 K/mm3 (0.16-1.47); MONOCYTES PERCENT AUTO 9 % (4-13); Mean Corpuscular HGB 28.9 pg (26.0-34.0); Mean Corpuscular HGB Conc 31.5 g/dL (31.5-36.5); Mean Corpuscular Volume 92 fL (80-100); Mean Platelet Volume 11.7 fL (9.1-12.4); NEUTROPHILS ABSOLUTE AUTO 5.45 K/mm3 (1.96-9.15); NEUTROPHILS PERCENT AUTO 75 % (41-73); Platelet Count 294 K/mm3 (150-400); RDW Coefficient Variation 14.2 % (11.7-14.2); RDW Standard Deviation 47.9 fL (35.1-46.3); Red Blood Cell Count 3.91 M/mm3 (4.30-5.90); White Blood Cell Count 7.26 K/mm3 (4.00-11.30)
== END | disposition home or self-care (01) ==
LOC: LAB SHORT 14:28 → LAB 14:28
PROVIDERS: Physician Assistant
DX: D64.9 Anemia, unspecified (principal)
CPT/HCPCS: 85025

== ENCOUNTER → 2024-01-25 | Outpatient (CLI) | payer MEDICARE ==
[~2024-01-25] MED LIST changes: +AMLO10 PO; +FAMO20 PO; +Prinivil10 MG PO
== END | disposition home or self-care (01) ==
LOC: LAB 15:27 → LAB SHORT 15:27
DX: C44.629 Squamous cell carcinoma of skin of left upper limb, including shoulder (principal)
CPT/HCPCS: 88305

== ENCOUNTER → 2024-10-03 | Outpatient (CLI) | payer MEDICARE ==
[2024-10-03 12:20] LABS: BASOPHILS ABSOLUTE AUTO 0.02 K/mm3 (0.00-0.23); BASOPHILS PERCENT AUTO 0 % (0-2); EOSINOPHILS ABSOLUTE AUTO 0.07 K/mm3 (0.00-0.68); EOSINOPHILS PERCENT AUTO 1 % (0-6); Hematocrit 45.0 % (37.0-53.0); Hemoglobin 15.0 g/dL (13.5-17.5); IMMATURE GRAN ABSOLUTE AUTO 0.02 K/mm3 (0.00-0.10); IMMATURE GRAN PERCENT AUTO 0 % (0-1); LYMPHOCYTES ABSOLUTE AUTO 1.26 K/mm3 (0.84-5.20); LYMPHOCYTES PERCENT AUTO 19 % (21-46); MONOCYTES ABSOLUTE AUTO 0.58 K/mm3 (0.16-1.47); MONOCYTES PERCENT AUTO 9 % (4-13); Mean Corpuscular HGB Conc 33.3 g/dL (31.5-36.5); Mean Corpuscular Volume 88 fL (80-100); NEUTROPHILS ABSOLUTE AUTO 4.60 K/mm3 (1.96-9.15); NEUTROPHILS PERCENT AUTO 70 % (41-73); NRBC ABSOLUTE 0.00 K/mm3 (0.00-0.02); NRBC Auto 0.0 /100 WBC (0.0-0.2); Platelet Count 254 K/mm3 (150-400); RDW Coefficient Variation 13.8 % (11.7-14.2); RDW Standard Deviation 44.8 fL (35.1-46.3)
[2024-10-03 12:35] LABS: Alanine Aminotransfer (ALT/SGP 18.0 U/L (12-78); Albumin, Blood 3.5 g/dL (3.4-5.0); Albumin/Globulin Ratio 1.0 (0.8-1.8); Anion Gap 11.0 mmol/L (3-11); Aspartate Aminotrans (AST/SGOT 31.0 U/L (12-37); Bilirubin, Total 0.7 mg/dL (0.1-1.0); Blood Urea Nitrogen 14.0 mg/dL (8-24); CO2, Blood 25.0 mmol/L (21-32); Calcium, Blood 9.2 mg/dL (8.5-10.1); Chloride, Blood 104.0 mmol/L (98-108); Creatinine, Blood 1.08 mg/dL (0.60-1.20); Globulin, Blood 3.5 g/dL (2.2-4.0); Glucose, Blood 103.0 mg/dL (70-99); Potassium, Blood 4.7 mmol/L (3.5-5.5); Sodium, Blood 135.0 mmol/L (136-145); Total Protein, Blood 7.0 g/dL (6.4-8.2)
== END ==
LOC: LAB SHORT 12:16 → LAB 12:16
PROVIDERS: Chiropractor
DX: R00.2 Palpitations (principal); R10.32 Left lower quadrant pain
CPT/HCPCS: 80053; 83690; 84484; 85025

== ENCOUNTER 2024-10-04 11:35 | Emergency (ER) | payer MEDICARE ==
[~2024-10-04] VITALS: Ht 170.2 cm; Wt 91.6 kg
[2024-10-04 12:40] LABS: BASOPHILS ABSOLUTE AUTO 0.04 K/mm3 (0.00-0.23); BASOPHILS PERCENT AUTO 1 % (0-2); EOSINOPHILS ABSOLUTE AUTO 0.07 K/mm3 (0.00-0.68); EOSINOPHILS PERCENT AUTO 1 % (0-6); Hematocrit 42.5 % (37.0-53.0); Hemoglobin 14.3 g/dL (13.5-17.5); IMMATURE GRAN ABSOLUTE AUTO 0.03 K/mm3 (0.00-0.10); IMMATURE GRAN PERCENT AUTO 0 % (0-1); LYMPHOCYTES ABSOLUTE AUTO 1.29 K/mm3 (0.84-5.20); LYMPHOCYTES PERCENT AUTO 17 % (21-46); MONOCYTES ABSOLUTE AUTO 0.71 K/mm3 (0.16-1.47); MONOCYTES PERCENT AUTO 10 % (4-13); Mean Corpuscular HGB Conc 33.6 g/dL (31.5-36.5); Mean Corpuscular Volume 88 fL (80-100); NEUTROPHILS ABSOLUTE AUTO 5.27 K/mm3 (1.96-9.15); NEUTROPHILS PERCENT AUTO 71 % (41-73); NRBC ABSOLUTE 0.00 K/mm3 (0.00-0.02); NRBC Auto 0.0 /100 WBC (0.0-0.2); Platelet Count 245 K/mm3 (150-400); RDW Coefficient Variation 13.7 % (11.7-14.2); RDW Standard Deviation 44.7 fL (35.1-46.3)
[2024-10-04 13:27] LABS: Alanine Aminotransfer (ALT/SGP 19.0 U/L (12-78); Albumin, Blood 3.4 g/dL (3.4-5.0); Albumin/Globulin Ratio 1.1 (0.8-1.8); Anion Gap 5.0 mmol/L (3-11); Aspartate Aminotrans (AST/SGOT 13.0 U/L (12-37); Bilirubin, Total 0.5 mg/dL (0.1-1.0); Blood Urea Nitrogen 13.0 mg/dL (8-24); CO2, Blood 28.0 mmol/L (21-32); Calcium, Blood 8.6 mg/dL (8.5-10.1); Chloride, Blood 107.0 mmol/L (98-108); Creatinine, Blood 0.99 mg/dL (0.60-1.20); Globulin, Blood 3.1 g/dL (2.2-4.0); Glucose, Blood 97.0 mg/dL (70-99); Potassium, Blood 4.5 mmol/L (3.5-5.5); Sodium, Blood 135.0 mmol/L (136-145); Total Protein, Blood 6.5 g/dL (6.4-8.2)
[2024-10-04 14:35] VITALS: BP 134/86
== END 2024-10-04 16:10 | disposition home or self-care (01) ==
LOC: ER 11:35
PROVIDERS: Emergency Medicine
DX: R00.2 Palpitations (principal); I10 Essential (primary) hypertension; Z79.899 Other long term (current) drug therapy; Z79.82 Long term (current) use of aspirin; Z87.891 Personal history of nicotine dependence
CPT/HCPCS: 71045; 80053; 84484; 85025; 93005; 93010; 93242; 99285-25